=== PATIENT | female | born 1990 ===

== ENCOUNTER 2017-06-07 15:17 | Emergency (ER) | payer MEDICAID, OTHER ==
[2017-06-07 15:22] VITALS: BMI 24.4
[2017-06-07 15:24] VITALS: TEMP 98.8
[2017-06-07 16:17] LABS: BASO # 0.01 K/mm3 (0.0-2.0); BASO % 0.1 % (0.0-3.0); EOS # 0.1 (0.0-0.7); EOS % 1.4 % (1.5-5.0); GRAN # 5.68 (1.4-6.5); HEMOGLOBIN 12.9 gm/dL (12.0-16.0); LYMPH # 1.6 (1.2-3.4); LYMPH % 20.4 % (22.0-35.0); MEAN CELL VOLUME 87.5 fL (80.0-105.0); MEAN CORPUSCULAR HEMOGLOBIN 29.9 pg (25.0-35.0); MEAN CORPUSCULAR HGB CONC 34.1 g/dl (31.0-37.0); MEAN PLATELET VOLUME 9.4 fl (7.0-11.0); MONO # 0.6 (0.1-0.6); MONO % 7.1 % (1.0-6.0); PLATELET COUNT 203 10^3/uL (120.0-450.0); RBC 4.32 10^6/uL (3.5-6.1); RED CELL DISTRIBUTION WIDTH 12.6 % (11.5-14.5); URINE BILIRUBIN NEGATIVE (NEGATIVE); URINE BLOOD NEGATIVE (NEGATIVE); URINE GLUCOSE (UA) NEGATIVE (NEGATIVE); URINE LEUKOCYTE ESTERASE SMALL Leu/uL (NEGATIVE); URINE NITRATE NEGATIVE (NEGATIVE); URINE PROTEIN NEGATIVE mg/dL (<30 mg/dL)
[2017-06-07 16:18] LABS: URINE APPEARANCE CLEAR (CLEAR); URINE COLOR YELLOW (YELLOW)
[2017-06-07 16:20] LABS: URINE BACTERIA FEW (NEG); URINE RBC NEGATIVE /hpf (0-2)
[2017-06-07 16:34] LABS: ALB/GLOB RATIO 1.5 (1.1-1.8); ALBUMIN 4.3 g/dL (3.0-4.8); ALT/SGPT 24 U/L (7-56); AST/SGOT 20 U/L (15-39); BLOOD UREA NITROGEN 14 mg/dL (7-21); CALCIUM 9.1 mg/dL (8.4-10.5); GFR AFRICAN-AMERICAN > 60; GFR NON-AFRICAN AMERICAN > 60
--- NOTE | 2017-06-07 16:54 | ED PDOC ---
Arrival/HPI <Jeremy Irizarry - Last Filed: 06/07/17 17:57> - General Historian: Patient <MELVIN CHARLES - Last Filed: 06/07/17 18:10> - General Chief Complaint: Female Genitourinary Time Seen by Provider: 06/07/17 15:28 - History of Present Illness Narrative History of Present Illness (Text): 06/07/17 16:43 Chelita De Luna is a 26 year old female who presents to the emergency department complaining of vaginal bleeding. The patient reports 3 days prior she experienced light bleeding for one hour and then spontaneously stopping. She denied any passage of any thick or clots like blood during this time. She reports her FDLMP was sometime near the end of March and that she had a positive at home test about 3-4 weeks ago. Since then she describes not feeling well. Increased nausea in the morning, which she did not experience with her previous , cramping, stomach pain and increased fatigue. Patient denies fever, changes in her bowel movments, and Patient reports history of miscarriage and elective with 2 of her previous pregnancies. She also reports having trichomoniasis and BV history during previous pregnancies. (MELVIN CHARLES) Past Medical History <Jeremy Irizarry - Last Filed: 06/07/17 17:57> - Provider Review Nursing Documentation Reviewed: Yes - Infectious Disease Hx of Infectious Diseases: None - Genitourinary/Gynecological Other/Comment: x 1 - Psychiatric Hx Substance Use: No - Surgical History Hx Dilation and Curettage: Yes - Anesthesia Hx Anesthesia: Yes Hx Anesthesia Reactions: No Hx Malignant Hyperthermia: No <MELVIN CHARLES - Last Filed: 06/07/17 18:10> - Patient History Narrative Patient History: History of BV and Trichomoniasis (MELVIN CHARLES) Family/Social History - Physician Review Nursing Documentation Reviewed: Yes Family/Social History: Other (Mother history of stillbirth) Smoking Status: Never Smoked Hx Alcohol Use: Yes Frequency of alcohol use: Socially Hx Substance Use: No <MELVIN CHARLES - Last Filed: 06/07/17 18:10> Allergies/Home Meds <Jeremy Irizarry - Last Filed: 06/07/17 17:57> <MELVIN CHARLES - Last Filed: 06/07/17 18:10> Allergies/Adverse Reactions: Allergies No Known Allergies Allergy (Verified 06/07/17 15:22) Review of Systems - Review of Systems Constitutional: Fatigue. absent: Weight Change, Fevers Respiratory: absent: SOB, Cough Cardiovascular: absent: Chest Pain, Palpitations Gastrointestinal: Abdominal Pain, Nausea. absent: Constipation, Vomiting Genitourinary Female: absent: Dysuria, Frequency, Hematuria Neurological: absent: Headache, Dizziness Psychiatric: absent: Anxiety, Depression <MELVIN CHARLES - Last Filed: 06/07/17 18:10> Physical Exam Vital Signs Reviewed: Yes Temperature: Afebrile Blood Pressure: Normal Pulse: Regular Respiratory Rate: Normal Pain Distress: None Mental Status: Positive for: Alert and Oriented X 3 - Systems Exam Head: Present: Atraumatic, Normocephalic Pupils: Present: PERRL Extroacular Muscles: Present: EOMI Conjunctiva: Present: Normal Mouth: Present: Moist Mucous Membranes Neck: Present: Normal Range of Motion. No: MIDLINE TENDERNESS Respiratory/Chest: Present: Clear to Auscultation, Good Air Exchange. No: Respiratory Distress Cardiovascular: Present: Regular Rate and Rhythm, Normal S1, S2 Abdomen: Present: Tenderness (mildly to RLQ), Normal Bowel Sounds. No: Distention, Peritoneal Signs Upper Extremity: Present: Normal Inspection, NORMAL PULSES. No: Edema Lower Extremity: Present: Normal Inspection, NORMAL PULSES Neurological: Present: GCS=15, CN II-XII Intact, Speech Normal Skin: Present: Warm, Dry Psychiatric: Present: Alert, Oriented x 3 <MELVIN CHARLES - Last Filed: 06/07/17 18:10> Vital Signs Temp Pulse Resp BP Pulse Ox 06/07/17 17:02 85 17 129/80 98 06/07/17 15:24 98.8 F 87 18 132/84 96 Medical Decision Making <Jeremy Irizarry - Last Filed: 06/07/17 17:57> <MELVIN CHARLES - Last Filed: 06/07/17 18:10> ED Course and Treatment: Seen and examined with resident. 26 y/o F p/w vaginal bleeding in . Abdomen soft, nontender on exam. (Jeremy Irizarry) 06/07/17 16:58 Impression: Mrs. Currie is a 26 year old female who complains of one episode of vaginal bleeding 3 days ago along with general fatigue. Differential Diagnosis included but are not limited to: - - Ectopic - Miscarriage Plan: - Lab: CBC, CMP, Type and Screen, Beta-Quant, Urinalysis with culture - Transvaginal ultrasound -- Reassess and disposition Progress Notes: 06/07/17 16:30 Urinalysis shows leuk est positive, start macrobid 06/07/17 18:04 Transvaginal U/S report indicates viable intrauterine with fetus measuring at 8 weeks 3 days +/- 4 days, heart rate of 178 (MELVIN CHARLES) - Lab Interpretations Lab Results: 06/07/17 15:30 06/07/17 15:30 Lab Results 06/07/17 15:30: Beta HCG, Quant 95878.00 H 06/07/17 15:30: Sodium 135, Potassium 3.5 L, Chloride 101, Carbon Dioxide 24, Anion Gap 14, BUN 14, Creatinine 0.5, Est GFR ( Amer) > 60, Est GFR (Non- Af Amer) > 60, Random Glucose 89, Calcium 9.1, Total Bilirubin 0.5, AST 20, ALT 24, Alkaline Phosphatase 48, Total Protein 7.1, Albumin 4.3, Globulin 2.8, Albumin/Globulin Ratio 1.5 06/07/17 15:30: Urine Color Yellow, Urine Appearance Clear, Urine pH 6.0, Ur Specific [place] 1.025, Urine Protein Negative, Urine Glucose (UA) Negative, Urine Ketones Negative, Urine Blood Negative, Urine Nitrate Negative, Urine Bilirubin Negative, Urine Urobilinogen 1.0 H, Ur Leukocyte Esterase Small H, Urine RBC Negative, Urine WBC 5 - 10, Ur Epithelial Cells 10 - 12, Urine Bacteria Few 06/07/17 15:30: WBC 8.0, RBC 4.32, Hgb 12.9, Hct 37.8, MCV 87.5, MCH 29.9, MCHC 34.1, RDW 12.6, Plt Count 203, MPV 9.4, Gran % 71.0 H, Lymph % (Auto) 20.4 L, [place] % (Auto) 7.1 H, Eos % (Auto) 1.4 L, Baso % (Auto) 0.1, Gran # 5.68, Lymph # 1.6, [place] # 0.6, Eos # 0.1, Baso # 0.01 06/07/17 15:30: Blood Type O POSITIVE, Antibody Screen Negative, BBK History Checked No verified bt - RAD Interpretation Radiology Orders: 06/07/17 15:55 TRANSVAGINAL [US] Stat - Medication Orders Current Medication Orders: Discontinued Medications Nitrofurantoin Macrocrystals (Macrobid) 100 mg PO STAT STA Stop: 06/07/17 16:37 Last Admin: 06/07/17 17:15 Dose: 100 mg - PA / FLIGHT COMMUNICATIONS SPECIALIST / Resident Statement MD/DO has reviewed & agrees with the documentation as recorded. MD/DO has examined the patient and agrees with the treatment plan. <MELVIN CHARLES - Last Filed: 06/07/17 18:10> Disposition/Present on Arrival - Disposition Disposition Time: 17:57 <Jeremy Irizarry - Last Filed: 06/07/17 17:57> - Present on Arrival Any Indicators Present on Arrival: No History of DVT/PE: No History of Uncontrolled Diabetes: No Urinary Catheter: No History of Decub. Ulcer: No History Surgical Site Infection Following: None - Disposition Have Diagnosis and Disposition been Completed?: Yes <MELVIN CHARLES - Last Filed: 06/07/17 18:10> - Disposition Diagnosis: Threatened Disposition: HOME/ ROUTINE Patient Problems: Current Active Problems Problem Status Onset Threatened Acute Condition: GOOD Discharge Instructions (ExitCare): Threatened Miscarriage (ED) Additional Instructions: Chelita thank you for letting us take care of you today. Your provider was Dr. Charles. The emergency medical care you received today was directed at your acute symptoms. If you were prescribed any medication, please fill it and take as directed. It may take several days for your symptoms to resolve. Return to the Emergency Department if your symptoms worsen, do not improve, or if you have any other problems. Please contact your doctor or call one of the physicians/clinics you have been referred to that are listed on the Patient Visit Information form that is included in your discharge packet. Bring any paperwork you were given at discharge with you along with any medications you are taking to your follow up visit. Our treatment cannot replace ongoing medical care by a primary care provider (PCP) outside of the emergency department. Thank you for allowing the [facility] team to be part of your care today. Follow up with BUSINESS SERVICES VICE PRESIDENT Prescriptions: Nitrofurantoin Macrocrystals [Macrobid] 100 mg PO BID #14 cap
--- NOTE | 2017-06-07 17:48 | US ---
HISTORY: Bleeding. . Assess cervix. COMPARISON: No prior study available comparison. TECHNIQUE: Transvaginal sonographic evaluation performed. FINDINGS: The uterus is anteverted measuring approximately 9.1 x 6.1 x 7.2cm. The cervix is closed measuring approximately 3.38 cm There is a single living intrauterine gestation with measurements as follows: Gestational sac: MSD = 3.18 cm = 8 weeks 1 day Yolk sac: 0.45 cm pole: 2.12 cm = 8 weeks 5 days Heart motion: 178 BPM Average ultrasound age: 8 weeks 3 days +/-0 weeks 4 days DARIAN based average ultrasound age = 0201/14/2018 Small amount of free fluid is present in the cul de sac. Right ovary measures approximately 4.3 x 3.2 x 3.9 cm and exhibits arterial flow. . Small cyst measuring 2.4 x 2.1 x 2.5 cm could represent corpus luteum cyst of Left ovary measures approximately 3 3.3 x 1.7 x 2.5 cm and also exhibits arterial flow Impression: Living intrauterine gestation at approximately 8 weeks 3 days +/-0 weeks 4 days. Heart rate documented at 178 BPM. . Cervix is closed measuring approximately 3.38 cm Probable corpus luteum cyst right ovary
[2017-06-07 18:16] VITALS: BP 128/78; PULSE 83; RESP 16; O2SAT 99
== END 2017-06-07 18:17 | disposition home or self-care (01) ==
LOC: ED 15:17 → MERGE 15:17 → ED 18:17
DX: O20.0 Threatened abortion (principal); Z3A.08 8 weeks gestation of pregnancy